=== PATIENT | female | born 2005 | race Caucasian/White ===

== ENCOUNTER 2023-04-17 18:47 | Outpatient (CLI) | payer OTHER | END 2023-04-17 23:59 | disposition EMS.NT | LOC: EMS 18:47 | DX: G43.909 Migraine, unspecified, not intractable, without status migrainosus (principal) ==

== ENCOUNTER 2023-04-17 19:24 | Emergency (ER) | payer OTHER ==
[2023-04-17] MEDS ORDERED: KETOROLAC 15 MG/ML VIAL IVP STA (19:33)
[2023-04-17] MEDS ORDERED: METOCLOPRAMIDE 10 MG/2 ML VIAL IVP STA (19:33)
[2023-04-17] MEDS ORDERED: diphenhydrAMINE INJ 50 MG/ML VIAL IVP STA (19:33)
[2023-04-17] MEDS ORDERED: SODIUM CHLORIDE 0.9% 1,000 ML IV STA ×3 (19:33→22:36)
[2023-04-17] MEDS ORDERED: ACETAMINOPHEN 325 MG TABLET PO STA (19:34)
[2023-04-17] MEDS ORDERED: SUMAtriptan 6 MG/0.5 ML VIAL SUBQ STA (21:03)
[2023-04-17] MEDS ORDERED: ONDANSETRON 4 MG/2 ML VIAL IVP STA (21:03)
--- NOTE | 2023-04-17 21:24 | ED Physician Documentation ---
History of Present Illness - Stated complaint Stated Complaint: MIGRAINE - Chief complaint Chief Complaint: Neuro - History obtained from History obtained from: Patient, Family () - Additonal information Additional information: 17-year-old girl, previously healthy, presents with headache starting earlier today with associated nbnb nausea and vomiting as well as body aches and chills. THRUSTON initially 10/10 severity, similar to prior headache she had in the past. Headache was present upon waking from sleep. Review of Systems Constitutional: reports: Fever, Chills, Myalgias, Fatigue GI: reports: Nausea, Vomiting. denies: Abdominal Pain, Diarrhea Musculoskeletal: denies: Neck pain Neurologic: reports: Headache PD PAST MEDICAL HISTORY - Allergies Allergies/Adverse Reactions: Allergies Allergy/AdvReac Type Severity Reaction Status Date / Time latex Allergy Anaphylaxis Verified 04/17/23 19:54 PD ED PE NORMAL - Vitals Vital signs reviewed: Yes - General General: Alert and oriented X 3, Well developed/nourished, Other (patient curled up in bed, reluctant to open eyes) - HEENT HEENT: Atraumatic, PERRL, EOMI, Moist mucous membranes, Pharynx benign - Derm Derm: Normal color, Warm and dry - Neuro Neuro: Alert and oriented X 3, 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 DDX included migraine, tension headache, sequelae of viral gastroenteritis. THURSTON improved to 7/10 s/p IV toradol, reglan, benadryl. Patient vomited again in the ED. now resting comfortably in bed. plan to reevaluate. THURSTON now 4/10. CT head unremarkable per my interpretation and that of outside radiologist. Return precautions given. Plan to follow-up outpatient with primary care provider. Departure - Departure Disposition: 01 Home, Self Care Clinical Impression: Headache, Vomiting Condition: Stable Instructions: ED Nausea Vomiting Comments: You are seen in the emergency department for headache and vomiting. Your head CT was normal. Your test was negative. Please follow-up with your primary care provider and return to the emergency department for new or worsening symptoms or other concerns.
[2023-04-17 23:04] LABS: HCG UR QUAL NEGATIVE
--- NOTE | 2023-04-17 23:26 | CT Report ---
PROCEDURE: HEAD WO INDICATIONS: headache TECHNIQUE: Noncontrast 4.5 mm thick angled axial sections acquired from the foramen magnum to the vertex. For r adiation dose reduction, the following was used: automated exposure control, adjustment of mA and/or kV according to patient size. COMPARISON: None. FINDINGS: Image quality: Excellent. CSF spaces: Basal cisterns are patent. No extra-axial fluid collections. Ventricles are normal in size and shape. Brain: No intracranial hemorrhage, mass, or mass effect. Lai-white matter interface appears preser tricia. Skull and face: Calvarium and visualized facial bones are intact, without suspicious lesions. Sinuses: Visualized sinuses and mastoids are clear. IMPRESSION: 1. No acute intracranial abnormality. Reviewed by: Pantera Hicks MD on 04/17/2023 11:39 PM PDT Approved by: Pantera Hicks MD on 04/17/2023 11:39 PM PDT Station ID: [id number]
[2023-04-17 23:56] VITALS: BP 124/78
== END 2023-04-17 23:55 | disposition home or self-care (01) ==
LOC: ED 19:24
DX: R51.9 Headache, unspecified (principal); R11.10 Vomiting, unspecified
CPT/HCPCS: 70450; 81025; 96374; 96375; 99283; 99284; A9270; J1200; J2765

== ENCOUNTER 2023-07-10 06:07 | Emergency (ER) | payer OTHER ==
[2023-07-10 06:29] VITALS: BP 118/73; O2SAT 98
[2023-07-10] MEDS ORDERED: HYDROcod/ACETAM 5/325 MG TABLET PO STA (06:47)
[2023-07-10] MEDS ORDERED: AMOXICILLIN 250 MG CAPSULE PO STA (06:47)
--- NOTE | 2023-07-10 06:50 | ED Physician Documentation ---
PD HPI HEENT - Stated complaint Stated Complaint: R FACE SWOLLEN - Chief complaint Chief Complaint: Heent - History obtained from History obtained from: Patient - Additional information Additional information: The pt comes to the ED with CC of R facial swelling. She has had a maxillary molar that has been bothering her, and is in the process of arranging dental follow-up. No fevers or chills. No throat swelling or elevation of tongue. Accompanied by mom. PD PAST MEDICAL HISTORY - Past Surgical History Past Surgical History: No - Present Medications Home Medications: Ambulatory Orders Medication Instructions Recorded Confirmed Amoxicillin 500 mg PO TID 7 Days #21 cap 07/10/23 HYDROcod/ACETAM 5/325 [[place] 5/325] 1 - 2 tablet PO Q6H PRN #14 tablet 07/10/23 - Allergies Allergies/Adverse Reactions: Allergies Allergy/AdvReac Type Severity Reaction Status Date / Time latex Allergy Anaphylaxis Verified 04/17/23 19:54 - Social History Does the pt smoke?: No Smoking Status: Never smoker Does the pt drink ETOH?: No Does the pt have substance abuse?: No - Immunizations Immunizations are current?: Yes - POLST Patient has POLST: No PD ED PE NORMAL - Vitals Vital signs reviewed: Yes - General General: Alert and oriented X 3, No acute distress, Well developed/nourished - HEENT HEENT: Atraumatic, PERRL, EOMI, Moist mucous membranes, Other (Moderate edema of R face. Mild maxillary gingival edema. Mild dental decay. No drainage. No elevation of floor of mouth.) - Neck Neck: Supple, no meningeal sign, No adenopathy - Respiratory Respiratory: No respiratory distress - Derm Derm: Warm and dry - Extremities Extremities: No deformity - Neuro Neuro: Alert and oriented X 3 - Psych Psych: Normal mood, Normal affect Results - Vitals Vitals: Oxygen O2 Source Room air PD Medical Decision Making - ED course Complexity details: considered differential, d/w patient, d/w family ED course: Pt was started on abx and analgesia. I have d/w her the importance of timely dental follow-up, and have given some options for clinics that offer walk-in appointments. We have discussed the usual indications for return. Departure - Departure Disposition: 01 Home, Self Care Clinical Impression: Dental infection Condition: Stable Instructions: ED Abscess Tooth Prescriptions: Amoxicillin 500 mg PO TID 7 Days #21 cap HYDROcod/ACETAM 5/325 [[place] 5/325] 1 - 2 tablet PO Q6H PRN #14 tablet PRN Reason: Pain Comments: You have been started on antibiotics and pain medication for your dental infection. A prescription for the same is been sent to the [facility] pharmacy in [place]. Please pick your prescription up today so that you do not miss any doses. It does not appear that the [facility] clinic in [place] is doing the walk-in clinic early in the morning any longer, but you can look online and see if any of the other local dental clinics do. [facility] in [place] does do 7-day a week clinics and they have walk-in slots. You can try calling them and see if you can get [place] to [place]. Forms: PCP List Discharge Date/Time: 07/10/23 07:12
== END 2023-07-10 07:12 | disposition home or self-care (01) ==
LOC: ED 06:07
DX: K08.89 Other specified disorders of teeth and supporting structures (principal)
CPT/HCPCS: 99282; 99283; A9270

== ENCOUNTER 2023-10-14 08:00 | Outpatient (CLI) | payer OTHER ==
[2023-10-14 15:52] LABS: BILIRUBIN,URINE NEGATIVE (NEGATIVE); GLUCOSE, URINE (UA) NEGATIVE (NEGATIVE); KETONES,URINE (UA) NEGATIVE (NEGATIVE); LEUKOCYTE ESTERASE, URINE NEGATIVE (NEGATIVE); NITRITE,URINE NEGATIVE (NEGATIVE); OCCULT BLOOD,URINE NEGATIVE (NEGATIVE); PROTEIN,URINE NEGATIVE (NEGATIVE); UROBILINOGEN,URINE 0.2 (NORMAL) E.U./dL (NORMAL)
[2023-10-14 16:03] LABS: CLARITY,URINE CLEAR (CLEAR); RBC,URINE 0-5 /HPF (0-5); SQUAMOUS EPITHELIAL CELL,UR FEW Squamous (<= Few); WBC,URINE 0-3 /HPF (0-5)
[2023-10-14 16:04] LABS: BACTERIA,URINE Few /HPF (None Seen); MUCUS,URINE Moderate Strands
== END 2023-10-14 23:59 | disposition home or self-care (01) ==
LOC: LAB.WC 08:00
PROVIDERS: ATTEND Nurse Practitioner
DX: Z34.00 Encounter for supervision of normal first pregnancy, unspecified trimester (principal)
CPT/HCPCS: 81001; 87086

== ENCOUNTER 2023-11-08 08:00 | Outpatient (CLI) | payer OTHER ==
[2023-11-08 20:34] LABS: CHLAMYDIA TRACHOMATIS DNA NEGATIVE (NEGATIVE); NEISSERIA GONORRHOEAE DNA NEGATIVE (NEGATIVE); TRICHOMONAS VAGINALIS DNA NEGATIVE (NEGATIVE)
== END 2023-11-08 23:59 | disposition home or self-care (01) ==
LOC: LAB.WC 08:00
PROVIDERS: ATTEND Nurse Practitioner
DX: Z11.3 Encounter for screening for infections with a predominantly sexual mode of transmission (principal)
CPT/HCPCS: 87491; 87591; 87661

== ENCOUNTER 2023-11-08 13:23 | Outpatient (CLI) | payer OTHER ==
[2023-11-08 13:50] LABS: BASOPHILS % (AUTO) 0.5 %; EOSINOPHILS # (AUTO) 0.1 10^3/uL (0.0-0.7); EOSINOPHILS % (AUTO) 1.5 %; HCT - HEMATOCRIT 39.7 % (37.0-47.0); HGB - HEMOGLOBIN 13.1 g/dL (12.0-16.0); LYMPHOCYTES # (AUTO) 2.5 10^3/uL (1.5-3.5); LYMPHOCYTES % (AUTO) 28.5 %; MEAN CORPUSCULAR HEMOGLOBIN 29.5 pg (27.0-31.0); MEAN CORPUSCULAR VOLUME 89.4 fL (81.0-99.0); MEAN PLATELET VOLUME 9.3 fL (7.9-10.8); MONOCYTES # (AUTO) 0.6 10^3/uL (0.0-1.0); MONOCYTES % (AUTO) 6.6 %; NEUTROPHILS # (AUTO) 5.5 10^3/uL (1.5-6.6); NEUTROPHILS % (AUTO) 62.2 %; PLT - PLATELET COUNT 311 10^3/uL (130-450); RED BLOOD COUNT 4.44 10^6/uL (4.20-5.40); RED CELL DISTRIBUTION WIDTH 12.3 % (12.0-15.0); WHITE BLOOD COUNT 8.8 x10^3/uL (4.8-10.8)
[2023-11-09 04:08] LABS: HBsAG SCREEN Negative (Negative)
[2023-11-09 05:12] LABS: RPR Non Reactive (Non Reactive)
[2023-11-09 09:09] LABS: VARICELLA-ZOSTER AB IGG <135 index (Immune >165)
[2023-11-10 09:07] LABS: HCV AB Non Reactive (Non Reactive); HIV SCREEN 4TH GENERATION Non Reactive (Non Reactive)
== END 2023-11-08 13:24 | disposition home or self-care (01) ==
LOC: LAB 13:23
PROVIDERS: ATTEND Nurse Practitioner
DX: Z34.00 Encounter for supervision of normal first pregnancy, unspecified trimester (principal); Z36.89 Encounter for other specified antenatal screening
CPT/HCPCS: 36415; 85025; 86592; 86762; 86787; 86803; 86850; 86900; 86901; 87340; 87389

== ENCOUNTER 2023-11-13 07:31 | Outpatient (CLI) | payer OTHER ==
--- NOTE | 2023-11-13 12:50 | Ultrasound Report ---
PROCEDURE: OB First Trimester INDICATIONS: POSITIVE TEST OUTSIDE/PRIOR DATING DATA: Last menstrual period (LMP): 08/29/2023. LMP-based estimated date of delivery (MARAH): 06/04/2024. First dating scan (date and location): 11/13/2023. Estimated date of delivery (MARAH) from first dating scan: 06/02/2024. TECHNIQUE: Real-time scanning was performed of the fetus and maternal pelvic organs, with image documentation. COMPARISON: None. FINDINGS: Intrauterine gestational sac present. Embryo: [place]-rump length measuring 4.33 cm, gestational age 11 weeks 1 day Heart rate: 171 bpm. Other: No perigestational fluid collection. Measurement variability in dating: +/- 4 weeks by LMP, +/- 7 days by mean sac diameter (use before 6 weeks gestation if crown-rump length not able to be measured), +/- 5 days by crown-rump length (6-12 weeks gestation). Maternal organs: Ovaries appear within normal limits. Left ovarian anechoic cyst measuring 6.7 x 6.5 x 4.4 cm. Cervix measures 3.9 cm. IMPRESSION: 1. Davis living intrauterine at 11 weeks 1 day based on today's crown-rump length. 2. No perigestational hemorrhage. 3. Large anechoic left ovarian cyst measuring 6.7 cm. Reviewed by: Jose Rodgers MD on 11/13/2023 12:49 PM PST Approved by: Jose Rodgers MD on 11/13/2023 12:49 PM PST Station ID: [id number]
== END 2023-11-13 07:32 | disposition home or self-care (01) ==
LOC: DI 07:31
PROVIDERS: ATTEND Nurse Practitioner
DX: O34.81 Maternal care for other abnormalities of pelvic organs, first trimester (principal); N83.202 Unspecified ovarian cyst, left side; Z3A.11 11 weeks gestation of pregnancy

== ENCOUNTER 2023-12-17 15:10 | Outpatient (CLI) | payer OTHER ==
[2023-12-19 21:07] LABS: AFP MOM 1.34 (.); AFP VALUE 43.1 ng/mL (.); DIA MOM 1.25 (.); DSR (BY AGE) 1 IN 1151 (.); DSR (SECOND TRIMESTER) 1 IN 4025 (.); GEST. AGE ON COLLECTION DATE 15.7 WEEKS (.); HCG MOM 1.27 (.); HCG VALUE 59545 mIU/mL (.); INSULIN DEP DIABETES No (.); MATERNAL AGE AT EDD 20.8 yr (.); MULTIPLE GESTATION No (.); OPEN SPINA BIFIDA RISK 1 IN 4273 (.); RACE Caucasian (.); RESULTS Report (.); TEST RESULTS *Screen Negative* (.); TRISOMY 18 RISK Not increased (.); UE3 MOM 0.81 (.); UE3 VALUE 0.73 ng/mL (.); WEIGHT 152 lbs (.)
== END 2023-12-17 15:11 | disposition home or self-care (01) ==
LOC: LAB 15:10
PROVIDERS: ATTEND Nurse Practitioner
DX: Z36.89 Encounter for other specified antenatal screening (principal)
CPT/HCPCS: 36415; 81511

== ENCOUNTER 2024-01-22 14:35 | Outpatient (CLI) | payer OTHER ==
--- NOTE | 2024-01-22 19:59 | Ultrasound Report ---
PROCEDURE: OB Anatomy Scan INDICATIONS: SUPERVISION OF OUTSIDE/PRIOR DATING DATA: Last menstrual period (LMP): 08/29/2023. LMP-based estimated date of delivery (MARAH): 06/04/2024. First dating scan (date and location): 11/13/2023. Estimated date of delivery (MARAH) from first dating scan: 06/02/2024. The below data below was generated using the clinical MARAH of 06/04/2024 TECHNIQUE: Real-time scanning was performed of the fetus, with image documentation and biometric measurements. Endovaginal scanning: Not performed. COMPARISON: OB ultrasound 11/13/2023 FINDINGS: General: A single living intrauterine gestation is present. Presentation: Variable Placenta: Placental position is posterior, without previa. Amniotic fluid index: 17.5 cm, within normal limits for gestational age. heart rate: 145 beats per minute. Maternal cervical canal: 4.2 cm long; normal length is 2.5 cm or more. biometrics: Biparietal diameter: 4.9 cm, 20 weeks 6 days, 48th percentile Head circumference: 18.5 cm, 20 weeks 6 days, 38th percentile Abdominal circumference: 16.6 cm, 21 weeks 5 days, 70th percentile Femur length: 3.3 cm, 20 weeks 2 days, 24th percentile Clinically estimated gestational age: 20 weeks 6 days Composite gestational age from present scan: 21 weeks 0 days Estimated weight and percentile: 394 g, 55th percentile Measurement variability in biometric dating: +/- 10 days from 12-20 weeks gestation, +/- 2 weeks from 20-30 weeks gestation, +/- 3 weeks at 30 weeks gestation or later. Anatomic survey: Neuro: Ventricles are normal at less than 10 mm. Cisterna magna is normal at 3-11 mm. Cerebellum i s normal in size and morphology. Nuchal skin fold: Normal at less than 6 mm between 14 and 20 weeks gestational age. Face: Nose and lips, facial profile are normal. Spine: No evidence for spina bifida. Heart: 4-chambered heart is present, with normal ventricular outflow tracts. Diaphragm: Diaphragm is intact. Stomach: Left-sided stomach is present. Kidneys: No hydronephrosis. Normal is less than 5 mm in 2nd trimester, less than 7 mm in 3rd trimester. Cord: 3 vessel cord has orthotopic insertion. Bladder: Normal in size. Extremities: All 4 extremities are visualized. A large maternal simple left ovarian cyst is seen measuring 6.3 x 5.5 x 5.6 cm. IMPRESSION: 1.Single live intrauterine with appropriate interval growth. 2. anatomic survey is within normal limits. 3.Maternal left ovarian simple cyst measuring 6.3 cm. Reviewed by: Tonio Moss MD on 01/22/2024 7:57 PM PST Approved by: Tonio Moss MD on 01/22/2024 7:57 PM PST Station ID: [id number]
== END 2024-01-22 14:36 | disposition home or self-care (01) ==
LOC: DI 14:35
PROVIDERS: ATTEND Nurse Practitioner
DX: O34.82 Maternal care for other abnormalities of pelvic organs, second trimester (principal); N83.292 Other ovarian cyst, left side; Z3A.21 21 weeks gestation of pregnancy

== ENCOUNTER 2024-02-10 21:27 | Outpatient (CLI) | payer OTHER ==
--- NOTE | 2024-02-10 22:10 | PROVIDER PROGRESS NOTE ---
- HPI Chief Complaint: Other (cramp/pain in her right leg and then moved to her uterus and then upper belly.) Current : HPI: presents to triage alone. was lying on couch watching TV, baby very active. then pain in right mid anteriorly, then down into her knee, then up into her uterus and then to upper abdomen. worried and came to triage. she is alone here. 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 he will be back early March. Parents are in [place]. Plan to move there in May and deliver there. Drove herself her tonight. baby is very active. has gluten intolerance and ate some pizza tonight. by the time I saw her in triage she was feeling better and no longer cramping. She denies n/v/diarrhea. 18y/o G-1 MARAH 06/04/2024 Here for routine OB follow up at 22+1. Informed and ordered 26-28 wk labs. Having THURSTON, HV. Baby active. ..... ..............................................................Ysabel Stone January 31, 2024 1:28 PM. REPEAT BLOOD PRESSURE 138/78 Allergies: Allergies Reviewed: Done * LATEX (Critical) Medications: Meds Reviewed: Done * Iron (ferrous sulfate) * Magnesium Zyrtec 10 mg tablet (cetirizine) 28-800 mg-mcg tablet ([id number] fumarate-fa) Take 1 tablet by mouth once a day Problems: Other ovarian cyst, left side (FKX75-D57.292) Elevated blood pressure reading without diagnosis of hypertension (ICD-796.2) (UIX48-Z52.0) Type A blood, Rh positive (ICD-V68.89) (QUD99-G55.10) Varicella non-immune (ICD-V49.89) (HXE18-R58.9) Screening for std (ICD-V74.5) (RAF17-F10.3) Encounter for other specified screening (ZUG92-O99.89) Supervision, normal first (ICD-V22.0) (UBJ35-R00.00) Past Medical History: ADHD Bipolar Autism ODD/OCD Past Surgical History: Oral surgery (age 5) Vital Signs: Patient Profile: 18 Years Old Female Height: 68 inches Weight: 168 pounds BMI: 25.64 BP sittin / 78 Cuff size: regular Pt. in pain? no Meds Reviewed: Done Allergies Reviewed: Done Serial Vital Signs/Assessments: Time Position BP Pulse Resp Temp By 138/78 Ysabel Stone Flowsheet View for Follow-up Visit Estimated weeks of gestation: 22 12/08 Weight: 168 Blood pressure: 142 / 78 Fundal height: 22 FHR: 149 Vaginal bleeding: no Vaginal discharge: no activity: yes Next visit: 4 wk Comment: Doing well. Reviewed the size of ovarian cyst on left ovary now 6.3cm. Elevated BP, normal on repeat. Will add baseline preE labs. Reviewed PreE precaustions. Heartborn annoying but toleratable. Headaches, mild, resolve with rest and tylenol. No other questions today. ~KJB LMP: 08/29/23 MARAH by LMP: 06/04/2024 11/13/2023/ +1 /C/W Final MARAH: 06/04/2024 Additional Notes: Large anechoic left ovarian cyst 6.7cm. No perigestational hemorrhage. ANC c/b: 1. large anechoic cyst at 6.7cm, Simple left ovarian cyst 6.3 x5.5 x 5.6cm @ 20 weeks. 2. [employer] - FOB deployed, returning in March then getting out of the [place] - will need copy of records for when she leaves for [place] - her support system is in [place] - encouraged her to start finding an OB now (Jan) - moving back to [facility]. G1 - quad wnl - brent sono scheduled f/u 1 month. Pre- Weight: 141 BMI: 23.07 Blood type: A+ Rh: postitive Antibody: Negative CBC: PLT: 311 HCT: 39.7 HGB 13.1 RUB: 18 VZV: <135 HBsAg: Negative HepC: NR RPR/AB-EIA: NR HIV: NR PAP:not due until 2023 (age 18) GC/CT: 12/8 Negative HSV: denies Genetic testing: QUAD negative Covid: declined Flu: declined FAS 01/22/24 Placenta: Posterior CARROLL: 17.5 EFW: 394g; 55th%tile 50gm OGCT: Ordered 3HR GTT: TDAP: Breast Pump: Impression & Recommendations: Problem # 1: Elevated blood pressure reading without diagnosis of hypertension (ICD-796.2) (EKG01-Y00.0) Orders: URINE PROTEIN TO CREATININE RATIO (CPT-98386, 02922) Complete Metabolic Panel (CPT-85648) Uric Acid (CPT-05091) Problem # 2: Type A blood, Rh positive (ICD-V68.89) (OTZ70-G70.10) Problem # 3: Varicella non-immune (ICD-V49.89) (NNS56-V18.9) Problem # 4: Other ovarian cyst, left side (SQB22-A25.292) Problem # 5: Supervision, normal first (ICD-V22.0) (QAJ73-J61.00) - Exam abdomen soft, not tender. legs bilaterally not tender. not swollen. baby with + FHT 140. no contractions. - Procedures Findings: seems better now. not sure why she was cramping. could have been from her ovarian cyst, although that is on left. Or from eating wheat. not sure. glad she is better. recommend stay away from wheat. try foreign wheat if she really has to eat it and see if that bothers her less. - Plan Plan: discharge home. care as scheduled.
[2024-02-11 02:19] VITALS: BP 114/69
== END 2024-02-10 23:00 | disposition home or self-care (01) ==
LOC: WFO 21:27 → FBP 21:30 → WFO 23:00
PROVIDERS: ATTEND Obstetrics & Gynecology
DX: O99.891 Other specified diseases and conditions complicating pregnancy (principal); R03.0 Elevated blood-pressure reading, without diagnosis of hypertension; R10.9 Unspecified abdominal pain; O34.82 Maternal care for other abnormalities of pelvic organs, second trimester; N83.202 Unspecified ovarian cyst, left side; Z3A.22 22 weeks gestation of pregnancy
CPT/HCPCS: 99214

== ENCOUNTER 2024-03-03 12:14 | Outpatient (CLI) | payer OTHER ==
[2024-03-03 12:57] LABS: CREATININE,URINE 172.9 mg/dL; PROTEIN/CREATININE RATIO,URINE 0.1 (<=0.2)
[2024-03-03 13:33] LABS: HCT - HEMATOCRIT 35.7 % (37.0-47.0); HGB - HEMOGLOBIN 11.7 g/dL (12.0-16.0); MEAN CORPUSCULAR HEMOGLOBIN 29.9 pg (27.0-31.0); MEAN CORPUSCULAR HGB CONC 32.8 g/dL (32.0-36.0); MEAN CORPUSCULAR VOLUME 91.3 fL (81.0-99.0); MEAN PLATELET VOLUME 9.5 fL (7.9-10.8); RED BLOOD COUNT 3.91 10^6/uL (4.20-5.40); RED CELL DISTRIBUTION WIDTH 12.1 % (12.0-15.0); WHITE BLOOD COUNT 9.7 x10^3/uL (4.8-10.8)
[2024-03-03 13:48] LABS: ALBUMIN 3.7 g/dL (3.2-5.5); ALBUMIN/GLOBULIN RATIO 1.4 (1.0-2.2); BILIRUBIN,TOTAL 0.2 mg/dL (0.2-1.0); CALCIUM 9.1 mg/dL (8.5-10.3); CREATININE 0.4 mg/dL (0.6-1.3); POTASSIUM 3.6 mmol/L (3.5-4.5); TOTAL PROTEIN 6.4 g/dL (6.4-8.9); URIC ACID 2.4 mg/dL (2.3-6.6)
== END 2024-03-03 12:15 | disposition home or self-care (01) ==
LOC: LAB 12:14
PROVIDERS: ATTEND Nurse Practitioner
DX: O99.891 Other specified diseases and conditions complicating pregnancy (principal); R03.0 Elevated blood-pressure reading, without diagnosis of hypertension
CPT/HCPCS: 36415; 80053; 82570; 82950; 84156; 84550; 85027

== ENCOUNTER 2024-03-30 08:00 | Outpatient (CLI) | payer OTHER ==
[2024-03-30 19:18] LABS: CHLAMYDIA TRACHOMATIS DNA NEGATIVE (NEGATIVE); NEISSERIA GONORRHOEAE DNA NEGATIVE (NEGATIVE)
[2024-03-30 20:11] LABS: BACTERIAL VAGINOSIS DNA NEGATIVE (NEGATIVE); CANDIDA GLABRATA DNA NEGATIVE (NEGATIVE); CANDIDA GROUP DNA NEGATIVE (NEGATIVE); CANDIDA KRUSEI DNA NEGATIVE (NEGATIVE); TRICHOMONAS VAGINALIS DNA NEGATIVE (NEGATIVE)
== END 2024-03-30 23:59 | disposition home or self-care (01) ==
LOC: LAB.WC 08:00
PROVIDERS: ATTEND Obstetrics & Gynecology
DX: O46.93 Antepartum hemorrhage, unspecified, third trimester (principal)
CPT/HCPCS: 81514; 87491; 87591; 87661

== ENCOUNTER 2024-03-30 16:41 | Outpatient (CLI) | payer OTHER ==
[2024-03-30 20:52] LABS: BILIRUBIN,URINE NEGATIVE (NEGATIVE); GLUCOSE, URINE (UA) NEGATIVE (NEGATIVE); KETONES,URINE (UA) NEGATIVE (NEGATIVE); LEUKOCYTE ESTERASE, URINE NEGATIVE (NEGATIVE); NITRITE,URINE NEGATIVE (NEGATIVE); OCCULT BLOOD,URINE NEGATIVE (NEGATIVE); PROTEIN,URINE NEGATIVE (NEGATIVE); UROBILINOGEN,URINE 0.2 (NORMAL) E.U./dL (NORMAL)
[2024-03-30 21:00] LABS: AMORPHOUS SEDIMENT,UR Moderate /LPF; BACTERIA,URINE None Seen /HPF (None Seen); CLARITY,URINE CLOUDY (CLEAR); RBC,URINE None Seen /HPF (0-5); SQUAMOUS EPITHELIAL CELL,UR RARE Squamous (<= Few); WBC,URINE 0-3 /HPF (0-5)
== END 2024-03-30 16:42 | disposition home or self-care (01) ==
LOC: LAB.N 16:41
PROVIDERS: ATTEND Nurse Practitioner
DX: O46.93 Antepartum hemorrhage, unspecified, third trimester (principal)
CPT/HCPCS: 81001; 81514; 87086; 87491; 87591; 87661

== ENCOUNTER 2024-04-09 12:18 | Outpatient (CLI) | payer OTHER ==
--- NOTE | 2024-04-10 08:24 | Ultrasound Report ---
PROCEDURE: OB Follow up INDICATIONS: OVARIAN CYST OUTSIDE/PRIOR DATING DATA: Last menstrual period (LMP): 08/29/2023. LMP-based estimated date of delivery (MARAH): 06/04/2024. First dating scan (date and location): 11/13/2023. Estimated date of delivery (MARAH) from first dating scan: 06/02/2024. The below data below was generated using the working MARAH of 06/04/2024 TECHNIQUE: Real-time scanning was performed of the fetus, with image documentation and biometric measurements. Endovaginal scanning: Not performed. COMPARISON: 01/22/2024 FINDINGS: General: A single living intrauterine gestation is present. Presentation: Vertex Placenta: Placental position is posterior, without previa. The placenta contains several echogenic foci throughout. Amniotic fluid index: 20.5 cm, deepest pocket is 5.3 cm, normal for gestational age. heart rate: 144 beats per minute. Maternal cervical canal: 3.2 cm long; normal length is 2.5 cm or more. biometrics: Biparietal diameter: 8.5 cm, 34 weeks 2 days, 94th percentile Head circumference: 31.1 cm, 34 weeks 5 days, 84th percentile Abdominal circumference: 29.0 cm, 33 weeks 0 days, 77th percentile Femur length: 6.1 cm, 31 weeks 4 days 26th percentile Estimated gestational age from initial scan: 32 weeks 0 days Composite gestational age from present scan: 33 weeks 3 days Estimated weight and percentile: 2068 g, 68th percentile Measurement variability in biometric dating: +/- 10 days from 12-20 weeks gestation, +/- 2 weeks from 20-30 weeks gestation, +/- 3 weeks at 30 weeks gestation or more. Other: Cystic structure in the left maternal adnexa measures 8.2 x 3.6 x 4.9 cm for a volume of 75 cc . No internal complexity. No adjacent fluid. IMPRESSION: Single living intrauterine in vertex presentation. growth is 1 week 3 days ahead of the working gestational age. Estimated weight at the 68th percentile. Closed cervix and amniotic fluid index of 20.5 cm. Maternal left ovarian cyst with volume of less than the prior exam. The placenta has a mature appearance. Reviewed by: Pam Chu MD on 04/10/2024 8:23 AM PDT Approved by: Pam Chu MD on 04/10/2024 8:23 AM PDT Station ID: [id number]
== END 2024-04-09 12:19 | disposition home or self-care (01) ==
LOC: DI 12:18
PROVIDERS: ATTEND Nurse Practitioner
DX: O34.83 Maternal care for other abnormalities of pelvic organs, third trimester (principal); N83.202 Unspecified ovarian cyst, left side; Z3A.33 33 weeks gestation of pregnancy

== ENCOUNTER 2024-04-14 16:37 | Outpatient (CLI) | payer OTHER ==
[2024-04-14 16:58] VITALS: BP 114/69
[2024-04-14] MEDS: ACETAMINOPHEN 500 MG TABLET PO SCH (19:29)
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
[2024-04-14] MEDS ORDERED: ACETAMINOPHEN 325 MG TABLET PO SCH (20:00)
== END 2024-04-14 20:40 | disposition home or self-care (01) ==
LOC: WFO 16:37 → FBP 16:39 → WFO 20:40
PROVIDERS: ATTEND Obstetrics & Gynecology
DX: Z04.1 Encounter for examination and observation following transport accident (principal)
CPT/HCPCS: 59025; 99215; A9270